=== PATIENT | female | born 1970 | race Hispanic/Latino ===

== ENCOUNTER 2021-11-04 14:23 | Emergency (ER) | payer SELFPAY ==
[2021-11-05 08:54] LABS: SARS-CoV-2 PCR by NAA Not Detected (NotDetected)
== END 2021-11-04 16:45 | disposition home or self-care (01) ==
LOC: CSHERS 14:23
DX: B34.9 Viral infection, unspecified (principal); Z20.822 Contact with and (suspected) exposure to COVID-19; I10 Essential (primary) hypertension; F17.210 Nicotine dependence, cigarettes, uncomplicated
CPT/HCPCS: 71045; 87804; U0003; U0005

== ENCOUNTER 2022-03-17 17:30 | Observation (INO) | payer SELFPAY ==
[2022-03-17 19:10] LABS: #Eosinphils 0.2 10x3/uL (0.0-0.5); #Monocytes 0.4 10x3/uL (0.0-1.1); #Neutrophils 2.7 10x3/uL (1.5-8.4); %Basophils 0.5 % (0.0-2.0); %Eosinophils 2.7 % (0.0-6.0); %Lymphocytes 49.8 % (18.0-47.0); %Neutrophils 40.8 % (40.0-75.0); Hemoglobin 13.7 g/dL (12.0-15.5); Mean Corpuscular HGB CONC 34.3 g/dL (32.0-36.0); Mean Corpuscular Hemoglobin 31.7 pg (27.0-33.0); Mean Corpuscular Volume 92.6 fl (81.6-98.3); Platelet Count 297 10x3/uL (150-450); RBC Distribution Width 12.1 % (11.5-14.5); Red Blood Cell (RBC) Count 4.32 10x6/uL (3.90-5.03); White Blood Cell (WBC) Count 6.7 10x3/uL (3.5-10.5)
[2022-03-17 19:24] LABS: ALT (SGPT) 26 U/L (8-55); AST (SGOT) 24 U/L (5-34); Albumin 4.1 g/dL (3.5-5.0); Alkaline Phosphatase 69 U/L (40-110); Anion Gap 11 mmol/L (10-20); BUN (Urea Nitrogen) 5 mg/dL (9.8-20.1); Bilirubin, Total 0.3 mg/dL (0.2-1.2); Calc. Creatinine Clearance 0 mL/min (70-130); Calcium 9.2 mg/dL (7.8-10.44); Carbon Dioxide 27 mmol/L (22-29); Chloride 103 mmol/L (98-107); Glucose 100 mg/dL (70-105); Potassium 4.2 mmol/L (3.5-5.1); Protein, Total 7.1 g/dL (6.0-8.3); Sodium 137 mmol/L (136-145)
[2022-03-17] MEDS: ALPRAZolam 1 MG TAB PO PRN (22:40)
[2022-03-17 23:11] LABS: Troponin I Less than 0.010 ng/mL (< 0.028)
[2022-03-17] MEDS ORDERED: Acetaminophen 325 MG TAB PO PRN (23:21)
[2022-03-17 23:23] VITALS: BMI 38.4
[2022-03-18 03:04] LABS: Troponin I 0.011 ng/mL (< 0.028)
[2022-03-18 03:08] LABS: Anion Gap 14 mmol/L (10-20); BUN (Urea Nitrogen) 9 mg/dL (9.8-20.1); Calc. Creatinine Clearance 143 mL/min (70-130); Carbon Dioxide 26 mmol/L (22-29); Cardiac Risk 5.2 (Less than 4.5); Chloride 103 mmol/L (98-107); Cholesterol 239 mg/dl (< 200 Desired); Glucose 105 mg/dL (70-105); HDL Cholesterol 46 mg/dL (>60 Neg Risk); Potassium 3.8 mmol/L (3.5-5.1); Sodium 139 mmol/L (136-145); Triglycerides 403 mg/dL (Less than 150)
[2022-03-18] MEDS ORDERED: Levothyroxine Sodium 50 MCG TAB PO SCH (06:00)
[2022-03-18] MEDS ORDERED: Enoxaparin Sodium 40 MG/0.4 ML SYRINGE SC SCH (09:00)
[2022-03-18] MEDS: ALPRAZolam 1 MG TAB PO PRN ×2 (11:06→14:37)
[2022-03-18 15:19] LABS: SARS-CoV-2 PCR by NAA Not Detected (NotDetected)
[2022-03-18 18:18] VITALS: BP 129/62; TEMP 96.5
== END 2022-03-18 19:01 | disposition home or self-care (01) ==
LOC: CSHERS 17:30 → CSHTELE 21:23
PROVIDERS: ADMIT Family Medicine; ATTEND Internal Medicine
DX: R00.1 Bradycardia, unspecified (principal); R42 Dizziness and giddiness; I10 Essential (primary) hypertension; E03.9 Hypothyroidism, unspecified; E78.5 Hyperlipidemia, unspecified; F41.1 Generalized anxiety disorder; F17.210 Nicotine dependence, cigarettes, uncomplicated; E66.9 Obesity, unspecified; Z68.35 Body mass index [BMI] 35.0-35.9, adult; Z79.899 Other long term (current) drug therapy; Z20.822 Contact with and (suspected) exposure to COVID-19
CPT/HCPCS: 36415; 71045; 80048; 80053; 80061; 84439; 84443; 84484; 85025; 93005; 93010; 93306; 96372; G0378; J1650; U0003; U0005

== ENCOUNTER 2022-04-07 17:37 | Emergency (ER) | payer SELFPAY | END 2022-04-07 20:07 | disposition home or self-care (01) | LOC: CSHERS 17:37 | DX: I10 Essential (primary) hypertension (principal); E03.9 Hypothyroidism, unspecified; F17.210 Nicotine dependence, cigarettes, uncomplicated | CPT/HCPCS: 99283 ==